=== PATIENT | female | born 1980 | race Caucasian/White ===

== ENCOUNTER 2021-07-29 22:17 | Emergency (ER) | payer BC, SELFPAY ==
[2021-07-29 22:22] VITALS: BP 131/76; PULSE 76; RESP 16; TEMP 36.1; O2SAT 100
--- NOTE | 2021-07-29 22:53 | ED.HEATRA ---
HPI - Head Injury General Chief complaint: Head Injury Stated complaint: fall with head injury Time Seen by Provider: 07/29/21 22:31 Source: patient, family and RN notes reviewed Mode of arrival: ambulatory Limitations: language barrier History of Present Illness HPI Narrative: This a 40 year old female who presents for evaluation of left eye brow laceration. Patient's states patient slipped in the shower, and she hit her head on shower. She denies headache, LOC, dizziness, nausea or vomiting. She did suffered left eyebrow laceration. He states her bleeding is under control. is help with history due to language barrier. Patient states she does not speak good [place]ron[place]. She is unaware of her last tetanus. She does not take any medications. Related Data Home Medications Medication Instructions Recorded Confirmed No Home Medications 07/29/21 07/29/21 Allergies Allergy/AdvReac Type Severity Reaction Status Date / Time No Known Allergies Allergy Verified 07/29/21 22:29 Review of Systems Review of Systems: All systems reviewed & are unremarkable except as noted in HPI and below PMFSH Past Medical History Medical History (Updated 07/29/21 @ 23:39 by Carrol Freeman MD) Patient denies medical problems Social History Social History (Updated 07/29/21 @ 22:58 by Carrol Freeman MD) Smoking status: Never smoker Exam Const: General: no acute distress and alert Orientation/consciousness: patient oriented x3 HENMT: Head: normocephalic and laceration (left eye brow laceration, bleeding controlled) Face and sinus: normal facial exam, sinuses nontender and face symmetric Mouth: Yes Normal oral and palatal mucosa present, Yes lip normal, Yes oropharynx normal and Yes moist mucous membranes Eyes: Pupils: Equal, round and reactive pupils present EOM: EOMs intact bilaterally Neck: Neck: normal visual inspection Resp: Effort & Inspection: normal respiratory effort Skin: Other: left upper eyebrow, eye lid seizure 1. 5 cm- Neuro: General: patient oriented x3 and moves all extremities Psych: Mental Status: mental status grossly normal Affect: normal affect Course Reevaluation(s) Reevaluation #1: I Discussed with patient and . Patient has no signs or symptoms to suggest need for neuroimaging. I went over return precautions. she was given tetanus tonight. Date: 07/29/21 Time: 23:36 Vital Signs Vital signs: Vital Signs Temperature 96.9 F L 07/29/21 22:22 Pulse Rate 76 07/29/21 22:22 Respiratory Rate 16 07/29/21 22:22 Blood Pressure 131/76 07/29/21 22:22 Pulse Oximetry 100 07/29/21 22:22 Temperature 96.9 F L 07/29/21 22:22 Pulse Rate 76 07/29/21 22:22 Respiratory Rate 16 07/29/21 22:22 Blood Pressure 131/76 07/29/21 22:22 Pulse Oximetry 100 07/29/21 22:22 Procedures Laceration Laceration 1: Date: 07/30/21 Time: 23:10 Site: face Side (If applicable): left (eyelid) Size (cm): 1.5 Description: linear Depth: simple, single layer Local Anesthetic: lidocaine 1% and with epi Amount of anesthesia used (mL): 1 ====== Skin Level ====== Size (cm): 5-0 (fast absorbing) Number of sutures: 3 Technique: simple, interrupted ====== Subcutaneous Layer ====== ====== Muscle Layer ====== ====== Tendon Layer ====== Discharge Plan Discharge Clinical Impression: Closed head injury Qualifiers: Encounter type: initial encounter Qualified Code(s): S09.90XA - Unspecified injury of head, initial encounter Laceration of eyebrow, left Qualifiers: Encounter type: initial encounter Qualified Code(s): S01.112A - Laceration without foreign body of left eyelid and periocular area, initial encounter Patient Disposition: Home, Self-Care Condition: Stable Instructions: Antibiotic Form, Head Injury (ED), Care For Your Absorbable Stitches (ED), Facial Lace
[2021-07-29] MEDS: TETANUS,DIPHTHERIA,AC PERTUSSIS ADULT (0.5 ML) BOOSTRIX IM (22:58)
== END 2021-07-30 00:13 | disposition home or self-care (01) ==
PROVIDERS: Emergency Provider General Practice
DX: S01.112A Laceration without foreign body of left eyelid and periocular area, initial encounter (principal); W18.2XXA Fall in (into) shower or empty bathtub, initial encounter; Z23 Encounter for immunization
CPT/HCPCS: 12011; 90471; 90715; 99282

== ENCOUNTER 2023-10-13 14:52 | Outpatient (CLI) | payer BC, SELFPAY ==
--- NOTE | ~2023-10-13 | XR_ITS ---
EXAMINATION: XR chest 2V 10/13/2023 15:18 INDICATION: Reaction to several mediastinal PROCEDURE: 2 view chest COMPARISON: No prior studies for comparison. FINDINGS: The lungs are clear. The cardiomediastinal silhouette is within normal limits. There are no pleural effusions. There is no pneumothorax suspected. IMPRESSION: 1: NO ACUTE CARDIOPULMONARY DISEASE. Reviewed, dictated and finalized at location B.
== END 2023-10-13 14:53 | disposition home or self-care (01) ==
PROVIDERS: Visit Provider Pediatrics
DX: R76.12 Nonspecific reaction to cell mediated immunity measurement of gamma interferon antigen response without active tuberculosis (principal)
CPT/HCPCS: 71046